=== PATIENT | female | born 1985 | race African-American/Black ===

== ENCOUNTER 2016-09-12 18:46 | Emergency (ER) | payer MEDICAID ==
[~2016-09-12] VITALS: Ht 162.6 cm; Wt 63.5 kg
[~2016-09-12 18:46] MED LIST: IBUP-1222 PO
[2016-09-12 18:47] VITALS: BP 123/73
[2016-09-12] MEDS ORDERED: HYDROcodone/APAP 5/325 TABLET ONE (19:47)
[2016-09-12] MEDS ORDERED: HYDROcodone/APAP 5/325 TABLET PO ONE (20:00)
== END 2016-09-12 20:37 | disposition home or self-care (01) ==
LOC: ED 20:31
DX: S50.12XA Contusion of left forearm, initial encounter (principal); X58.XXXA Exposure to other specified factors, initial encounter; Y93.89 Activity, other specified; Y92.009 Unspecified place in unspecified non-institutional (private) residence as the place of occurrence of the external cause; Y99.9 Unspecified external cause status
CPT/HCPCS: 99284